=== PATIENT | male | born 2000 | race Caucasian/White ===

== ENCOUNTER 2021-05-12 10:08 | Observation (INO) ==
[2021-05-12] MEDS ORDERED: SODIUM CHLORIDE 0.9% 1000ML 1,000 ML IV STA (10:54)
--- NOTE | 2021-05-12 11:18 | Emergency Department Note ---
Impression & Plan Acute appendicitis ED Provider Note Provider: Leon Alvarenga MD DATE OF SERVICE: 05/12/2021 CHIEF COMPLAINT: Abdominal pain HISTORY OF PRESENT ILLNESS: Patient is a 21-year-old otherwise healthy gentleman presenting here today complaining of initially some more epigastric abdominal pain starting yesterday afternoon radiating overnight and this morning to the right lower quadrant. Denies significant back pain or radiation of the pain down legs. Denies testicular or genital pain. Denies any trauma. Patient denies nausea or vomiting but states it was a little constipated yesterday and had one episode of diarrhea today. Denies any history of similar pain. States he has not had much of an appetite. Tried some Pepcid overnight that helped but did not help this morning. Did have anything to eat today. States the pain is manageable hurts more when he walks. REVIEW OF SYSTEMS: A total of 10 review of systems was obtained and negative except as stated above in the HPI. PAST MEDICAL HISTORY: As noted above MEDICATIONS: Denies SOCIAL HISTORY: Non-smoker, [employer] student PHYSICAL EXAM: GENERAL: alert and oriented in no acute distress on stretcher Head: normocephalic and atraumatic EYES: No injection, discharge or icterus. NECK: Trachea midline. ENT: Mucous membranes pink and moist. LUNGS: Airway patent. No retractions no tachypnea HEART: Regular rate and rhythm. No chest wall tenderness ABDOMEN: Soft with tenderness in the right lower quadrant. Positive psoas sign. Negative Bowens sign. EXTREMITIES: Without swelling, tenderness or deformity NEUROLOGICAL: No focal deficits. No aphasia. No facial droop or slurred speech. Patient's laboratory studies and imaging reviewed. Differential includes Appendicitis, testicular torsion, infections, diverticul itis, UTI, obstruction, mesenteric ischemia, aortic pathology, inflammatory bowel disease, renal colic, PUD, pancreatitis, biliary pathology, hernia, volvulus, constipation, as well as other pathologies. IMPRESSION/MEDICAL DECISION MAKING: Patient presentation concerning for appendicitis. Lower suspicion for gastrointestinal process such as colitis. Patient is not peritoneal. Negative Bowens sign and no believe this represents biliary pathology. Blood work is reassuring as is Covid test. Denies any pain. Urinalysis negative. No significant leukocytosis. CT completed shows evidence of acute appendicitis without perforation or abscess. Surgical team is consulted. Patient and with patient's request his mother was updated via phone regarding the findings. Surgery team to evaluate for surgical care. Patient declined pain medication while here. DIAGNOSIS: Acute appendicitis, abdominal pain DISPOSITION: Evaluated by the surgery team for surgical treatment Past Med/Surg History Medical History (Updated 05/12/21 @ 18:49 by Leon Alvarenga M.D.) No significant past medical history Surgical History (Updated 05/12/21 @ 14:52 by Sebas Brooks MD) No significant past surgical history Social History Smoking Status: Never smoker Feels Safe at Home: Yes Allergies Allergies Allergy/AdvReac Type Severity Reaction Status Date / Time Penicillins AdvReac Rash Unverified 05/12/21 14:18 Results & Data (ED) Vital Signs Vital Signs - 24 hr 05/12/21 10:11 05/12/21 11:23 05/12/21 11:30 Temperature 36.8 C Temperature Source Oral Pulse Rate 107 H 84 92 H Pulse Rate [Apical] Pulse Rate [Left] Pulse Rate from SpO2 Sensor 85 96 H Pulse Rhythm [Apical] Pulse Rhythm [Left] Pulse Strength [Left] Respiratory Rate 18 20 21 Respiratory Effort / Characteristics Respiratory Depth Respiratory Pattern Blood Pressure 145/87 H 103/75 Blood Pressure [Left Arm] Blood Pressure Mean 106 84 Blood Pressure Mean [Left Arm] Blood Pressure Position [Left Arm] Pulse Oximetry 96 96 96 Oxygen Delivery Method Room Air Room Air Oxygen Flow Rate Sepsis Recent Fever Within 48 Hours No Sepsis New/Unexplained Change in Mental Status No Sepsis Action Taken by Nursing No Action Required 05/12/21 12:00 05/12/21 12:36 05/12/21 13:00 Temperature Temperature Source Pulse Rate 81 80 82 Pulse Rate [Apical] Pulse Rate [Left] Pulse Rate from SpO2 Sensor 79 77 83 Pulse Rhythm [Apical] Pulse Rhythm [Left] Pulse Strength [Left] Respiratory Rate 18 18 17 Respiratory Effort / Characteristics Respiratory Depth Respiratory Pattern Blood Pressure 123/76 132/78 120/85 Blood Pressure [Left Arm] Blood Pressure Mean 91 96 96 Blood Pressure Mean [Left Arm] Blood Pressure Position [Left Arm] Pulse Oximetry 96 98 99 Oxygen Delivery Method Room Air Room Air Room Air Oxygen Flow Rate Sepsis Recent Fever Within 48 Hours Sepsis New/Unexplained Change in Mental Status Sepsis Action Taken by Nursing 05/12/21 14:46 05/12/21 15:01 05/12/21 16:29 Temperature 36.9 C 36.6 C Temperature Source Oral Temporal Artery Scan Pulse Rate Pulse Rate [Apical] 77 Pulse Rate [Left] 84 89 Pulse Rate from SpO2 Sensor Pulse Rhythm [Apical] Regular Pulse Rhythm [Left] Regular Pulse Strength [Left] Normal Respiratory Rate 16 20 16 Respiratory Effort / Characteristics Non-Labored Non-Labored Non-Labored Spontaneous Respiratory Depth Normal Normal Normal Respiratory Pattern Regular Regular Blood Pressure Blood Pressure [Left Arm] 133/79 118/80 116/53 L Blood Pressure Mean Blood Pressure Mean [Left Arm] 97 92 74 Blood Pressure Position [Left Arm] Lying Semi-fowlers Pulse Oximetry 97 99 97 Oxygen Delivery Method Room Air Room Air Nasal Cannula Oxygen Flow Rate 2 Sepsis Recent Fever Within 48 Hours Sepsis New/Unexplained Change in Mental Status Sepsis Action Taken by Nursing 05/12/21 16:35 05/12/21 16:45 05/12/21 16:55 Temperature Temperature Source Pulse Rate Pulse Rate [Apical] 86 82 72 Pulse Rate [Left] Pulse Rate from SpO2 Sensor Pulse Rhythm [Apical] Regular Regular Regular Pulse Rhythm [Left] Pulse Strength [Left] Respiratory Rate 15 12 12 Respiratory Effort / Characteristics Non-Labored Spontaneous Non-Labored Spontaneous Non-Labored Spontaneous Respiratory Depth Normal Normal Normal Respiratory Pattern Regular Regular Regular Blood Pressure Blood Pressure [Left Arm] 113/69 115/66 124/77 Blood Pressure Mean Blood Pressure Mean [Left Arm] 83 82 92 Blood Pressure Position [Left Arm] Semi-fowlers Semi-fowlers Semi-fowlers Pulse Oximetry 99 99 100 Oxygen Delivery Method Nasal Cannula Nasal Cannula Nasal Cannula Oxygen Flow Rate 2 2 2 Sepsis Recent Fever Within 48 Hours Sepsis New/Unexplained Change in Mental Status Sepsis Action Taken by Nursing 05/12/21 17:05 05/12/21 17:15 05/12/21 17:25 Temperature 37.0 C Temperature Source Temporal Artery Scan Pulse Rate Pulse Rate [Apical] 63 80 90 Pulse Rate [Left] Pulse Rate from SpO2 Sensor Pulse Rhythm [Apical] Regular Regular Regular Pulse Rhythm [Left] Pulse Strength [Left] Respiratory Rate 16 16 12 Respiratory Effort / Characteristics Non-Labored Spontaneous Non-Labored Spontaneous Non-Labored Spontaneous Respiratory Depth Normal Normal Normal Respiratory Pattern Regular Regular Regular Blood Pressure Blood Pressure [Left Arm] 121/70 129/74 115/59 L Blood Pressure Mean Blood Pressure Mean [Left Arm] 87 92 77 Blood Pressure Position [Left Arm] Semi-fowlers Semi-fowlers Semi-fowlers Pulse Oximetry 92 98 98 Oxygen Delivery Method Room Air Nasal Cannula Nasal Cannula Oxygen Flow Rate 2 2 Sepsis Recent Fever Within 48 Hours Sepsis New/Unexplained Change in Mental Status Sepsis Action Taken by Nursing 05/12/21 17:35 05/12/21 17:45 Temperature 36.8 C Temperature Source Temporal Artery Scan Pulse Rate Pulse Rate [Apical] 98 H 95 H Pulse Rate [Left] Pulse Rate from SpO2 Sensor Pulse Rhythm [Apical] Regular Regular Pulse Rhythm [Left] Pulse Strength [Left] Respiratory Rate 15 12 Respiratory Effort / Characteristics Non-Labored Spontaneous Non-Labored Spontaneous Respiratory Depth Normal Normal Respiratory Pattern Regular Regular Blood Pressure Blood Pressure [Left Arm] 128/73 124/60 Blood Pressure Mean Blood Pressure Mean [Left Arm] 91 81 Blood Pressure Position [Left Arm] Semi-fowlers Semi-fowlers Pulse Oximetry 98 97 Oxygen Delivery Method Nasal Cannula Nasal Cannula Oxygen Flow Rate 2 2 Sepsis Recent Fever Within 48 Hours Sepsis New/Unexplained Change in Mental Status Sepsis Action Taken by Nursing Laboratory Data Result diagrams: 05/12/21 11:15 05/12/21 11:15 Lab Results 05/12/21 05/12/21 05/12/21 Range/Units 11:15 11:15 11:56 WBC 10.53 (4.8-10.8) K/uL RBC 5.31 (4.7-6.1) M/uL Hgb 15.5 (14.0-18.0) g/dL Hct 45.1 (42-52) % MCV 84.9 (80-100) fL MCH 29.2 (25-34) pg MCHC 34.4 (32-36) g/dL RDW Std Deviation 40.1 (36.4-46.3) fL RDW Coeff of Tracey 13.0 (11.5-14.5) % Plt Count 252 (130-400) K/uL MPV 11.2 H (7.4-10.4) fL Immature Gran % (Auto) 0.2 % Neut % (Auto) 76.7 % Lymph % (Auto) 11.7 % Pope % (Auto) 10.3 % Eos % (Auto) 0.7 % Baso % (Auto) 0.4 % Neut # (Auto) 8.09 H (1.4-6.5) K/uL Lymph # (Auto) 1.23 (1.2-3.4) K/uL Pope # (Auto) 1.08 H (0.11-0.59) K/uL Eos # (Auto) 0.07 (0-0.5) K/uL Baso # (Auto) 0.04 (0-0.2) K/uL Immature Gran # (Auto) 0.02 (0.00-0.02) K/uL Sodium 136 (136-145) mmol/L Potassium 4.0 (3.5-5.1) mmol/L Chloride 103 (98-107) mmol/L Carbon Dioxide 27 (21-32) mmol/L Anion Gap 6.0 (3-11) BUN 14 (7-18) mg/dl Creatinine 1.02 (0.6-1.4) mg/dl Est Cr Clr Drug Dosing 118.3 ml/min Est GFR ( Amer) 121.2 ml/min Est GFR (Non-Af Amer) 104.6 ml/min BUN/Creatinine Ratio 13.4 (10-20) Glucose 88 (70-99) mg/dl Calcium 9.8 (8.5-10.1) mg/dl Total Bilirubin 1.1 H (0.2-1) mg/dl AST 16 (15-37) U/L ALT 23 (12-78) U/L Alkaline Phosphatase 75 (45-117) U/L Total Protein 8.8 H (6.4-8.2) gm/dl Albumin 4.3 (3.4-5.0) gm/dl Globulin 4.5 H (2.5-4.0) gm/dl Albumin/Globulin Ratio 1.0 (0.9-2) Lipase 68 L (73-393) U/L Urine Color Urine Appearance (Clear) Urine pH (4.5-7.5) Ur Specific Gerton (1.000-1.030) Urine Protein (Negative) Urine Glucose (UA) (Negative) Urine Ketones (Negative) Urine Blood (Negative) Urine Nitrite (Negative) Urine Bilirubin (Negative) Urine Urobilinogen (Negative) Ur Leukocyte Esterase (Negative) COVID-19 Eval Order Covid19 at [facility] SARS-CoV-2 (PCR) (Negative) 05/12/21 05/12/21 Range/Units 11:56 12:36 WBC (4.8-10.8) K/uL RBC (4.7-6.1) M/uL Hgb (14.0-18.0) g/dL Hct (42-52) % MCV (80-100) fL MCH (25-34) pg MCHC (32-36) g/dL RDW Std Deviation (36.4-46.3) fL RDW Coeff of Tracey (11.5-14.5) % Plt Count (130-400) K/uL MPV (7.4-10.4) fL Immature Gran % (Auto) % Neut % (Auto) % Lymph % (Auto) % Pope % (Auto) % Eos % (Auto) % Baso % (Auto) % Neut # (Auto) (1.4-6.5) K/uL Lymph # (Auto) (1.2-3.4) K/uL Pope # (Auto) (0.11-0.59) K/uL Eos # (Auto) (0-0.5) K/uL Baso # (Auto) (0-0.2) K/uL Immature Gran # (Auto) (0.00-0.02) K/uL Sodium (136-145) mmol/L Potassium (3.5-5.1) mmol/L Chloride (98-107) mmol/L Carbon Dioxide (21-32) mmol/L Anion Gap (3-11) BUN (7-18) mg/dl Creatinine (0.6-1.4) mg/dl Est Cr Clr Drug Dosing ml/min Est GFR ( Amer) ml/min Est GFR (Non-Af Amer) ml/min BUN/Creatinine Ratio (10-20) Glucose (70-99) mg/dl Calcium (8.5-10.1) mg/dl Total Bilirubin (0.2-1) mg/dl AST (15-37) U/L ALT (12-78) U/L Alkaline Phosphatase (45-117) U/L Total Protein (6.4-8.2) gm/dl Albumin (3.4-5.0) gm/dl Globulin (2.5-4.0) gm/dl Albumin/Globulin Ratio (0.9-2) Lipase (73-393) U/L Urine Color Yellow Urine Appearance Clear (Clear) Urine pH 7.0 (4.5-7.5) Ur Specific Gerton 1.009 (1.000-1.030) Urine Protein Negative (Negative) Urine Glucose (UA) Negative (Negative) Urine Ketones 1+ H (Negative) Urine Blood Negative (Negative) Urine Nitrite Negative (Negative) Urine Bilirubin Negative (Negative) Urine Urobilinogen Negative (Negative) Ur Leukocyte Esterase Negative (Negative) COVID-19 Eval Order SARS-CoV-2 (PCR) NEGATIVE (Negative) Administered Medications Discontinued Medications Bupivacaine HCl (Bupivacaine 0.5 % 5 Mg/1 Ml Mpf 30ml Vial) Confirm Administered Dose 30 ml .ROUTE .STK-MED ONE Stop: 05/12/21 15:10 Last Admin: 05/12/21 16:10 Dose: 10 ml Documented by: [id number] Clindamycin Phosphate (Clindamycin 600 Mg/54 Ml D5w) Confirm Administered Dose 600 mg IV .STK-MED ONE Stop: 05/12/21 15:02 Last Admin: 05/12/21 15:27 Dose: 600 mg Documented by: [id number] Fentanyl Citrate (Fentanyl Citrate 100 Mcg/2 Ml Vial) 25 mcg IV Q5M PRN PRN Reason: PACU Use Only-Pain Stop: 05/12/21 23:18 Last Admin: 05/12/21 17:31 Dose: 25 mcg Documented by: [id number] Admin: 05/12/21 17:25 Dose: 25 mcg Documented by: [id number] Admin: 05/12/21 17:15 Dose: 25 mcg Documented by: [id number] Admin: 05/12/21 16:50 Dose: 25 mcg Documented by: [id number] Sodium Chloride (Nss 1000ml) 1,000 mls @ 999 mls/hr IV .Q1H1M STA Stop: 05/12/21 11:54 Last Infusion: 05/12/21 12:18 Dose: 0 mls/hr Documented by: [id number] Admin: 05/12/21 11:17 Dose: 999 mls/hr Documented by: [id number] Acetaminophen (Ofirmev) 1,000 mg in 100 mls @ 400 mls/hr IV NOW ONE; Protocol Stop: 05/12/21 16:29 Last Infusion: 05/12/21 18:41 Dose: 0 mls/hr Documented by: [id number] Admin: 05/12/21 16:38 Dose: 400 mls/hr Documented by: [id number] Ioversol (Optiray 320 100ml) 98 ml IV ONCE ONE Stop: 05/12/21 13:47 Last Admin: 05/12/21 13:47 Dose: 98 ml Documented by: [id number] Ketorolac Tromethamine (Ketorolac 30 Mg/Ml Vial) 30 mg IV ONCE PRN PRN Reason: PACU Use Only-Pain Stop: 05/12/21 23:19 Last Admin: 05/12/21 16:52 Dose: 30 mg Documented by: [id number] Ondansetron HCl (Ondansetron Inj 2 Mg/Ml 2 Ml Vial) 4 mg IV ONCE PRN PRN Reason: PACU Use Only-Nausea/Vomiting Stop: 05/12/21 23:19 Last Admin: 05/12/21 16:50 Dose: 4 mg Documented by: [id number] Imaging Data Radiologist's Impression: Abdomen/Pelvis CT 05/12/21 10:54 CT abd pelvis oral and IV con CLINICAL HISTORY: abd pain right sided since yesterday. Patient reports diarrhea COMPARISON STUDY: No previous studies for comparison. CT DOSE: 529.55 mGycm TECHNIQUE: Standard CT of the Abdomen and Pelvis was performed with IV contrast. A dose lowering technique was utilized adhering to the principles of ALARA. Contrast Volume: Optiray 320, 98 ml. The patient received oral contrast. FINDINGS: Lung base: The lung bases are clear. Abdominal cavity: There is no evidence for abdominal mass, adenopathy or ascites. Liver: There is homogeneous attenuation of the liver parenchyma. There is no evidence for enhancing mass lesion. Spleen: There is homogeneous attenuation of the splenic parenchyma. There is no enhancing mass lesion. Pancreas: There is homogeneous attenuation of the pancreatic parenchyma. There is no evidence for mass lesion or peripancreatic fluid collection. Gall Bladder: The gallbladder is well distended with no evidence for intraluminal calculi, wall thickening or pericholecystic edema. Adrenal glands: The adrenal glands are normal in size and attenuation. There is no evidence for enhancing mass lesion. Kidneys: There is homogeneous attenuation of the renal parenchyma bilaterally. There is no evidence for renal calculus or hydronephrosis. There is no evidence for enhancing mass. Bowel: There is swelling of the appendix measuring 10 mm with diffuse enhancement of the appendiceal wall. A small, 3 mm calcified appendicolith is present. Periappendiceal inflammatory changes seen. However, there is no evidence for perforation or abscess. The bowel loops are otherwise normally placed within the abdomen and pelvis. There is no evidence for mass lesion. Oral contrast is seen within the stomach, small bowel and colon to the level of the splenic flexure. There is no evidence for free air. Bladder: The bladder is within normal limits with no evidence for focal mass, calculus or diverticulum. There is mild diffuse thickening of the bladder wall. : There is no evidence for pelvic mass or adenopathy. There is no evidence for pelvic ascites. Vasculature: There is no evidence for aneurysmal dilatation of the abdominal aorta. Osseous structures: There is no acute osseous pathology. IMPRESSION: 1. CT findings demonstrating acute appendicitis without evidence for perforation or abscess. Critical results will be called to the emergency department. ACT 112: Negative or not required by law. Electronically signed by: Phil Gale M.D. 05/12/2021 2:05 PM Discharge Plan Visit Data Chief Complaint: Abdominal Pain Stated Complaint: ABD PAIN- REF BY [facility] ED Provider: Leon Alvarenga Discharge Problem: Acute appendicitis Patient Disposition: Admitted As Inpatient Discharge Instructions Interventions: ED Discharge Assessment Last Done: 05/12/21 14:54
[2021-05-12 11:27] LABS: Basophils # (auto) 0.04 K/uL (0-0.2); Basophils % (auto) 0.4 %; Eosinophils # (auto) 0.07 K/uL (0-0.5); Eosinophils % (auto) 0.7 %; Hematocrit (blood only) 45.1 % (42-52); Hemoglobin 15.5 g/dL (14.0-18.0); Immature Granulocytes # (auto) 0.02 K/uL (0.00-0.02); Immature Granulocytes % (auto) 0.2 %; Lymphocytes # (auto) 1.23 K/uL (1.2-3.4); Lymphocytes % (auto) 11.7 %; Mean Corpuscular Hemoglobin 29.2 pg (25-34); Mean Corpuscular Hgb Conc 34.4 g/dL (32-36); Mean Corpuscular Volume 84.9 fL (80-100); Mean Platelet Volume 11.2 fL (7.4-10.4); Monocytes # (auto) 1.08 K/uL (0.11-0.59); Monocytes % (auto) 10.3 %; Neutrophils # (auto) 8.09 K/uL (1.4-6.5); Neutrophils % (auto) 76.7 %; Platelet Count 252 K/uL (130-400); RDW Standard Deviation 40.1 fL (36.4-46.3); Red Blood Count 5.31 M/uL (4.7-6.1); White Blood Count 10.53 K/uL (4.8-10.8)
[2021-05-12 11:47] LABS: Albumin Level 4.3 gm/dl (3.4-5.0); BUN Creatinine Ratio 13.4 (10-20); Calcium 9.8 mg/dl (8.5-10.1); Creatinine Clr Calc Pharmacy 118.3 ml/min; Est GFR (African American) 121.2 ml/min; Est GFR (Non-African American) 104.6 ml/min
[2021-05-12 11:50] LABS: Bilirubin,Total 1.1 mg/dl (0.2-1); Globulin 4.5 gm/dl (2.5-4.0); Total Protein 8.8 gm/dl (6.4-8.2)
[2021-05-12 12:49] LABS: Appearance Urine Clear (Clear); Bilirubin Urine Negative (Negative); Blood Urine Negative (Negative); Color Urine Yellow; Glucose Urine UA Negative (Negative); Ketones Urine 1+ (Negative); Leukocyte Esterase Urine Negative (Negative); Nitrite Urine Negative (Negative); Protein Urine Negative (Negative); Specific Gravity Urine 1.009 (1.000-1.030); Urobilinogen Urine Negative (Negative)
[2021-05-12] MEDS ORDERED: OPTIRAY 320 100ml IV ONE (13:46)
--- NOTE | 2021-05-12 14:06 | CT Scan Report ---
CT abd pelvis oral and IV con CLINICAL HISTORY: abd pain right sided since yesterday. Patient reports diarrhea COMPARISON STUDY: No previous studies for comparison. CT DOSE: 529.55 mGycm TECHNIQUE: Standard CT of the Abdomen and Pelvis was performed with IV contrast. A dose lowering nivia hnique was utilized adhering to the principles of ALARA. Contrast Volume: Optiray 320, 98 ml. The patient received oral contrast. FINDINGS: Lung base: The lung bases are clear. Abdominal cavity: There is no evidence for abdominal mass, adenopathy or ascites. Liver: There is homogeneous attenuation of the liver parenchyma. There is no evidence for enhancing m ass lesion. Spleen: There is homogeneous attenuation of the splenic parenchyma. There is no enhancing mass lesion . Pancreas: There is homogeneous attenuation of the pancreatic parenchyma. There is no evidence for mas s lesion or peripancreatic fluid collection. Gall Bladder: The gallbladder is well distended with no evidence for intraluminal calculi, wall thick ening or pericholecystic edema. Adrenal glands: The adrenal glands are normal in size and attenuation. There is no evidence for enhan cing mass lesion. Kidneys: There is homogeneous attenuation of the renal parenchyma bilaterally. There is no evidence f or renal calculus or hydronephrosis. There is no evidence for enhancing mass. Bowel: There is swelling of the appendix measuring 10 mm with diffuse enhancement of the appendiceal wall. A small, 3 mm calcified appendicolith is present. Periappendiceal inflammatory changes seen. Ho wever, there is no evidence for perforation or abscess. The bowel loops are otherwise normally placed within the abdomen and pelvis. There is no evidence fo r mass lesion. Oral contrast is seen within the stomach, small bowel and colon to the level of the sp lenic flexure. There is no evidence for free air. Bladder: The bladder is within normal limits with no evidence for focal mass, calculus or diverticulu m. There is mild diffuse thickening of the bladder wall. : There is no evidence for pelvic mass or adenopathy. There is no evidence for pelvic ascites. Vasculature: There is no evidence for aneurysmal dilatation of the abdominal aorta. Osseous structures: There is no acute osseous pathology. IMPRESSION: 1. CT findings demonstrating acute appendicitis without evidence for perforation or abscess. Critical results will be called to the emergency department. ACT 112: Negative or not required by law. Electronically signed by: Phil Gale M.D. 05/12/2021 2:05 PM
--- NOTE | 2021-05-12 14:21 | History & Physical Report ---
Date of Service May 12, 2021 Assessment & Plan (1) Acute appendicitis: Plan: This is a 21y M with no significant PMH who presents to the [facility] ED on 05/12/21 with complaints of abdominal pain starting yesterday around 3:30pm. The pain migrated from the mid-abdomen to the RLQ, associated with nausea. CT scan performed in the ER revealed evidence concerning for acute appendicitis, no perforation or abscess. WBC 10.5. Vital signs stable. On examination patient is tender to palpation in the RLQ. Based on history and clinical findings we will proceed to take the patient to the OR for a laparoscopic appendectomy. Covid testing is negative. He will receive pre-op IV clindamycin. Dr. Steele has obtained surgical consent. History of Present Illness Primary Care Provider: [facility], [place] This is a 21y M with no significant PMH who presents to the [facility] ED on 05/12/21 with complaints of abdominal pain starting yesterday around 3:30pm. He says the pain originally started in his mid abdomen. He tried to sleep it off without success. He called [facility] around 9pm who referred him to the ER for further evaluation, but he did not come in at that time. This morning when he woke up the pain migrated to the RLQ. Pain was associated with nausea, chills, and diarrhea and he decided to come in. A CT scan performed in the ER revealed evidence concerning for acute appendicitis, no perforation or abscess.Patient says he last ate yesterday around noon. He has no past surgical history. Has an allergy to PCN. Allergies Allergy/AdvReac Type Severity Reaction Status Date / Time Penicillins AdvReac Rash Unverified 05/12/21 14:18 Past Med/Surg History Medical History (Updated 05/12/21 @ 14:52 by Sebas Brooks MD) No significant past medical history Surgical History (Updated 05/12/21 @ 14:52 by Sebas Brooks MD) No significant past surgical history Social History Smoking Status: Never smoker Feels Safe at Home: Yes Review of Systems Constitutional: + chills; no fever Respiratory: no dyspnea Cardiovascular: no chest pain Gastrointestinal: + abdominal pain, + bloating, + nausea and + diarrhea/loose stools; no vomiting Physical Exam Physical Exam: awake/alert Constitutional: well developed and well nourished Respiratory: normal respiratory effort Gastrointestinal (Abdomen): Inspection/Auscultation: + abdomen distended (mild) Percussion/Palpation: + abdomen tender (TTP RLQ) Results & Data Results & Data ([facility]) Vital Signs (Past 12 Hours) Vital Signs Temp Pulse Resp BP Pulse Ox 05/12/21 13:00 82 17 120/85 99 05/12/21 12:36 80 18 132/78 98 05/12/21 12:00 81 18 123/76 96 05/12/21 11:30 92 H 21 103/75 96 05/12/21 11:23 84 20 96 05/12/21 10:11 36.8 C 107 H 18 145/[address] abd pelvis oral and IV con CLINICAL HISTORY: abd pain right sided since yesterday. Patient reports diarrhea COMPARISON STUDY: No previous studies for comparison. CT DOSE: 529.55 mGycm TECHNIQUE: Standard CT of the Abdomen and Pelvis was performed with IV contrast. A dose lowering technique was utilized adhering to the principles of ALARA. Contrast Volume: Optiray 320, 98 ml. The patient received oral contrast. FINDINGS: Lung base: The lung bases are clear. Abdominal cavity: There is no evidence for abdominal mass, adenopathy or ascites. Liver: There is homogeneous attenuation of the liver parenchyma. There is no evidence for enhancing mass lesion. Spleen: There is homogeneous attenuation of the splenic parenchyma. There is no enhancing mass lesion. Pancreas: There is homogeneous attenuation of the pancreatic parenchyma. There is no evidence for mass lesion or peripancreatic fluid collection. Gall Bladder: The gallbladder is well distended with no evidence for intraluminal calculi, wall thickening or pericholecystic edema. Adrenal glands: The adrenal glands are normal in size and attenuation. There is no evidence for enhancing mass lesion. Kidneys: There is homogeneous attenuation of the renal parenchyma bilaterally. There is no evidence for renal calculus or hydronephrosis. There is no evidence for enhancing mass. Bowel: There is swelling of the appendix measuring 10 mm with diffuse enhancement of the appendiceal wall. A small, 3 mm calcified appendicolith is present. Periappendiceal inflammatory changes seen. However, there is no evidence for perforation or abscess. The bowel loops are otherwise normally placed within the abdomen and pelvis. There is no evidence for mass lesion. Oral contrast is seen within the stomach, small bowel and colon to the level of the splenic flexure. There is no evidence for free air. Bladder: The bladder is within normal limits with no evidence for focal mass, calculus or diverticulum. There is mild diffuse thickening of the bladder wall. : There is no evidence for pelvic mass or adenopathy. There is no evidence for pelvic ascites. Vasculature: There is no evidence for aneurysmal dilatation of the abdominal aorta. Osseous structures: There is no acute osseous pathology. IMPRESSION: 1. CT findings demonstrating acute appendicitis without evidence for perforation or abscess. Critical results will be called to the emergency department. ACT 112: Negative or not required by law. Electronically signed by: Phil Gale M.D. 05/12/2021 2:05 PM Supervising Physician Co-Signing Physician Notes Agree with above assessment-I did evaluate the patient in the emergency room PG Care Time/CCT Total # of Minutes Spent Total Time Spent with Patient: Total time spent is greater than 50% in coordination of care (as documented) at patient's floor/unit and/or counseling patient: Coding Level of Care Code 64963 Initial Inpt Care Lvl 2 Diagnoses Acute appendicitis K35.80
--- NOTE | 2021-05-12 14:52 | Anesthesiology Consultation ---
Date of Service May 12, 2021 Assessment & Plan (1) Encounter for pre-operative examination: Chart Review Chart Review: Acceptable Risk for Surgery History Surgery Operation Date: 05/12/21 16:50 Proposed Procedures p Laparoscopic Appendectomy - Devon Steele MD, FACS Height/Weight Height: 5 ft 10 in Weight: 77.2 kg Allergies Allergy/AdvReac Type Severity Reaction Status Date / Time Penicillins AdvReac Rash Unverified 05/12/21 14:18 NPO Date Last Intake of Fluids: 05/12/21 Time Last Intake of Fluids: 08:00 Last Intake of Fluids Comment: Had CT Scan prep Date Last Intake of Solids: 05/11/21 Time Last Intake of Solids: 12:00 Past Medical History Medical History (Updated 05/12/21 @ 14:52 by Sebas Brooks MD) No significant past medical history Past Surgical History Surgical History (Updated 05/12/21 @ 14:52 by Sebas Brooks MD) No significant past surgical history Social History Smoking Status: Never smoker Physical Exam Vital Signs Last Vital Signs Temp 36.8 C 05/12/21 10:11 Pulse 84 05/12/21 14:46 Resp 16 05/12/21 14:46 BP 133/79 05/12/21 14:46 Pulse Ox 97 05/12/21 14:46 Testing Laboratory Results 05/12/21 11:15 05/12/21 11:15 Urine Color Yellow 05/12/21 12:36 Urine Appearance Clear (Clear) 05/12/21 12:36 Urine pH 7.0 (4.5-7.5) 05/12/21 12:36 Ur Specific [place] 1.009 (1.000-1.030) 05/12/21 12:36 Urine Protein Negative (Negative) 05/12/21 12:36 Urine Glucose (UA) Negative (Negative) 05/12/21 12:36 Urine Ketones 1+ (Negative) H 05/12/21 12:36 Urine Nitrite Negative (Negative) 05/12/21 12:36 Ur Leukocyte Esterase Negative (Negative) 05/12/21 12:36
[2021-05-12] MEDS ORDERED: CLINDAMYCIN 600 MG/54 ML D5W IV ONE (15:01)
[2021-05-12] MEDS ORDERED: fentaNYL citrate 100 MCG/2 ML VIAL ONE ×2 (15:04→15:43)
[2021-05-12] MEDS ORDERED: MIDAZOLAM HCL 1 MG/ML 2ML VIAL ONE (15:04)
[2021-05-12] MEDS ORDERED: GLYCOPYRROLATE 0.2 MG/ML VIAL ONE (15:05)
[2021-05-12] MEDS ORDERED: ONDANSETRON INJ 2 MG/ML 2 ML VIAL ONE (15:05)
[2021-05-12] MEDS ORDERED: DEXAMETHASONE SOD INJ 4 MG/ML VIAL ONE (15:05)
[2021-05-12] MEDS ORDERED: NEOSTIGMINE METHYLSULFATE 1 MG/ML 10ML VIAL ONE (15:05)
[2021-05-12] MEDS ORDERED: ROCURONIUM BROMIDE 10 MG/ML 5 ML VIAL IV ONE (15:05)
[2021-05-12] MEDS ORDERED: PROPOFOL IV EMULSION 10 MG/ML 20 ML VIAL IV ONE (15:05)
[2021-05-12] MEDS ORDERED: LIDOCAINE 2% 2 ML VIAL/AMP(20MG/ML) INFIL ONE (15:05)
[2021-05-12] MEDS ORDERED: BUPIVACAINE 0.5 % 5 MG/1 ML MPF 30ML VIAL ONE (15:09)
[2021-05-12] MEDS ORDERED: ATROPINE SULFATE 0.1 MG/ML 10ML SYR IV PRN (15:18)
[2021-05-12] MEDS ORDERED: KETOROLAC 30 MG/ML VIAL IV PRN (15:18)
[2021-05-12] MEDS ORDERED: ONDANSETRON INJ 2 MG/ML 2 ML VIAL IV PRN ×2 (15:18→18:13)
[2021-05-12] MEDS ORDERED: PROMETHAZINE HCL 6.25 MG in SODIUM CHLORIDE 0.9% 50 ML IV PRN (15:18)
--- NOTE | 2021-05-12 16:14 | Post Operative Brief Note ---
PG Immediate Post Op with CF Date of Surgery May 12, 2021 Pre & Post Diagnosis Operation Date: 05/12/21 16:50 Pre-Op Diagnosis: acute appendicitis Post-Op Diagnosis: acute appendicitis I identified the patient and participated in the time-out.: Yes Procedure Operation Date: 05/12/21 16:50 Actual Procedures p Laparoscopic Appendectomy(Not Applicable) - Devon Steele MD, FACS Surgeon Devon Steele MD, FACS Relief Salesperson Filemon Mckeon Estimated Blood Loss 10 Findings Consistent with Post-Op Diagnosis Acutely inflamed appendix Specimens Specimen Description: a. appendix
[2021-05-12] MEDS ORDERED: ACETAMINOPHEN 1,000 MG/100 ML VIAL IV ONE (16:15)
[2021-05-12] MEDS: fentaNYL citrate 100 MCG/2 ML VIAL IV PRN ×4 (16:50→17:31)
--- NOTE | 2021-05-12 17:10 | Anesthesiology Progress Note ---
Date of Service May 12, 2021 Anesthesia Post Procedure Vital Signs Vital Signs: Temp Pulse Pulse Pulse Resp BP BP 05/12/21 17:05 37.0 C 63 16 121/70 05/12/21 16:55 72 12 124/77 05/12/21 16:45 82 12 115/66 05/12/21 16:35 86 15 113/69 05/12/21 16:29 36.6 C 77 16 116/53 L 05/12/21 15:01 36.9 C 89 20 118/80 05/12/21 14:46 84 16 133/79 05/12/21 13:00 82 17 120/85 05/12/21 12:36 80 18 132/78 05/12/21 12:00 81 18 123/76 05/12/21 11:30 92 H 21 103/75 05/12/21 11:23 84 20 05/12/21 10:11 36.8 C 107 H 18 145/87 H Pulse Ox 05/12/21 17:05 92 05/12/21 16:55 100 05/12/21 16:45 99 05/12/21 16:35 99 05/12/21 16:29 97 05/12/21 15:01 99 05/12/21 14:46 97 05/12/21 13:00 99 05/12/21 12:36 98 05/12/21 12:00 96 05/12/21 11:30 96 05/12/21 11:23 96 05/12/21 10:11 96 Pain Intensity Right Lower Abdomen: Pain Intensity: 3 Transfer of Care Handoff Completed per policy Notes Mental Status: alert / awake / arousable Patient Amnestic to Procedure: Yes Nausea / Vomiting: adequately controlled Pain: adequately controlled Airway Patency, RR, SpO2: stable & adequate BP & HR: stable & adequate Hydration State: stable & adequate Anesthetic Complications: no major complications apparent and Pt Satisfied with anesthetic care
[2021-05-12] MEDS ORDERED: HYDROmorphone INJ 0.5 MG/0.5 ML SYR IV PRN ×2 (18:13)
[2021-05-12] MEDS ORDERED: PROMETHAZINE HCL 25 MG in SODIUM CHLORIDE 0.9% 50 ML IV PRN (18:13)
[2021-05-12] MEDS ORDERED: LACTATED RINGER'S 1,000 ML IV SCH (18:13)
[2021-05-12] MEDS ORDERED: PROMETHAZINE HCL 12.5 MG in SODIUM CHLORIDE 0.9% 50 ML IV PRN (18:13)
--- NOTE | 2021-05-12 20:05 | Operative Report (OR) ---
DATE OF OPERATION: 05/12/2021. NAME OF OPERATION: Laparoscopic appendectomy with lysis of adhesions. PREOPERATIVE DIAGNOSIS: Acute appendicitis. POSTOPERATIVE DIAGNOSIS: Acute appendicitis. STAFF SURGEON: Devon Steele MD. EAR FLAP BINDER: Mónica Mckeon PA-C. ANESTHESIA: General. DESCRIPTION OF PROCEDURE: The patient was brought in the operating room and placed on the operating table in supine position. His abdomen was prepped and draped in the usual fashion. An incision was made just above the umbilicus using 0.5% plain Marcaine to anesthetize skin and subcutaneous tissue. Incision made carrying dissection down, placing a Veress needle producing pneumoperitoneum, placing a 5 mm port. Camera was passed and then a 5 mm port placed suprapubically and a 12 mm port placed in left lower quadrant. The cecum was reflected. The appendix was very long. It had adhesions in the retroperitoneum. The base of the appendix was transected using an Endo-MIGUEL stapler and then the shira endix was carefully dissected away from the retroperitoneum using two more Endo-MIGUEL loads. The appen duncan was placed in an Endobag and removed through the left lower quadrant port site. The site was irr igated and aspirated. Hemostasis was maintained. All ports were removed. The fascia at the 12 mm s ite closed using 0 Vicryl suture. The skin was reapproximated using subcuticular 4-0 Monocryl suture . Dermabond at the umbilicus and suprapubic area. Steri-Strips left lower quadrant. My medical assistant instructor h elped with prepping, draping, removal of the appendix, closure of the wounds. Job ID: [id number]
[2021-05-12] MEDS: oxyCODONE HCL IR 5 MG TAB (IMMEDIATE RELEASE) PO PRN (20:44)
[2021-05-12] MEDS: CLINDAMYCIN 600 MG in DEXTROSE 5% 50 ML IV SCH (22:22)
[2021-05-13] MEDS: oxyCODONE HCL IR 5 MG TAB (IMMEDIATE RELEASE) PO PRN (01:34)
[2021-05-13] MEDS ORDERED: CLINDAMYCIN 600 MG/54 ML BAG IV SCH (06:00)
[2021-05-13] MEDS: CLINDAMYCIN 600 MG in DEXTROSE 5% 50 ML IV SCH (06:02)
--- NOTE | 2021-05-13 06:46 | Ultrasound Report ---
US venous doppler LE RT HISTORY: 21 years-old Male Rule out DVT acute pain and swelling of the right lower leg COMPARISON: None TECHNIQUE: Multiple real-time sonographic images of the right lower extremity deep venous structures were obtained assessing grayscale appearance, color and spectral flow. FINDINGS: Normal flow, compressibility, phasicity and augmentation. IMPRESSION: No sonographic evidence of deep venous thrombosis. ACT 112: Negative or not required by law. The above report was generated using voice recognition software. It may contain grammatical, syntax o r spelling errors. Electronically signed by: Omar Starr M.D. 05/13/2021 6:45 AM
--- NOTE | 2021-05-13 08:22 | Surgery Progress Note ---
Date of Service May 13, 2021 Assessment & Plan (1) Acute appendicitis: Plan: POD#1 laparoscopic appendectomy Patient doing well. Pain controlled with prn medications Diet tolerated. Has been OOB ambulating Surgical incisions c/d/i Will plan on discharge to home today with f/u in clinic within [address] Steele Admission and Anticipated Discharge Date Admission Date: May 12, 2021 Subjective Patient is doing well. Has some expected post operative pain around the RLQ. Says it is tolerable. He is eating a regular diet, no nausea/vomiting. Voiding okay. Has been out of bed ambulating. Physical Exam Physical Exam: awake/alert Gastrointestinal (Abdomen): Inspection/Auscultation: + abdominal surgical incision (c/d/i no signs of infection) Percussion/Palpation: + abdomen tender (some expected ttp around RLQ) and abdomen soft Results & Data ([facility]) Vital Signs (Past 12 Hours) Vital Signs Temp Pulse Resp BP Pulse Ox 05/13/21 07:24 36.3 C L 106 H 14 123/74 95 05/13/21 04:11 88 115/70 05/13/21 03:45 36.5 C 101 H 16 112/67 95 05/12/21 23:16 36.8 C 75 16 109/61 93 PG Care Time/CCT Total # of Minutes Spent Total Time Spent with Patient: Total time spent is greater than 50% in coordination of care (as documented) at patient's floor/unit and/or counseling patient: Coding Level of Care Code None Diagnoses Acute appendicitis K35.30 Acute appendicitis type: with localized peritonitis Appendicitis abscess presence: without abscess Appendicitis gangrene presence: unspecified whether gangrene present Appendicitis perforation presence: without perforation (1) Acute appendicitis Acute appendicitis type: with localized peritonitis Appendicitis abscess presence: without abscess Appendicitis gangrene presence: unspecified whether gangrene present Appendicitis perforation presence: without perforation Qualified Code(s): K35.30 - Acute appendicitis with localized peritonitis, without perforation or gangrene
--- NOTE | 2021-05-13 10:26 | Discharge Summary ---
Date of Service May 13, 2021 Admission HPI Per Admitting Provider This is a 21y M with no significant PMH who presents to the [facility] ED on 05/12/21 with complaints of abdominal pain starting yesterday around 3:30pm. He says the pain originally started in his mid abdomen. He tried to sleep it off without success. He called [facility] around 9pm who referred him to the ER for further evaluation, but he did not come in at that time. This morning when he woke up the pain migrated to the RLQ. Pain was associated with nausea, chills, and diarrhea and he decided to come in. A CT scan performed in the ER revealed evidence concerning for acute appendicitis, no perforation or abscess.Patient says he last ate yesterday around noon. He has no past surgical history. Has an allergy to PCN. Principal Diagnosis acute appendicitis Discharge Exam awake/alert Gastrointestinal (Abdomen) Inspection/Auscultation: + abdominal surgical incision (c/d/i) Percussion/Palpation: + abdomen tender (some ttp in rlq) and abdomen soft Discharge Data Allergies Allergy/AdvReac Type Severity Reaction Status Date / Time Penicillins AdvReac Rash Unverified 05/12/21 14:18 Consultations 05/12/21 14:18 ED Decision to Admit Stat Procedures Performed Operation Date: 05/12/21 16:50 Actual Procedures p Laparoscopic Appendectomy(Not Applicable) - Devon Steele MD, FACS Ordered Studies 05/12/21 10:54 CT abd pelvis oral and IV con Stat 05/12/21 18:43 US venous doppler LE RT Urgent Hospital Course (1) Acute appendicitis: This is a 21yM who presented to the [facility] ED on 05/12/21 with abdominal pain. Workup in the ED showed a WBC of [address] a/p concerning for acute appendicitis. The patient was tender to palpation in the RLQ. Patient made NPO with IVF and booked for the OR. On 05/12 the patient went to the OR with Dr. Steele for a laparoscopic appendectomy. The patient tolerated the procedure well, see operative report for full details. Post operatively the patient's diet was advanced, pain managed on prn meds, and incisions clean/dry/intact. Post operatively the patient's diet was advanced as tolerated and pain controlled w ith prn medications. He was able to void on his own and ambulate. On 05/13/21 the patient was deemed stable for discharge to home. He was given instructions to follow up in clinic within 2 weeks. Total Time Total Time Spent Total Time Spent (In Minutes): 10 Discharge Plan Discharge Items Patient Disposition: Home - Self-Care Reason For Visit: APPENDICITIS Discharge Diagnosis: laparoscopic appendectomy Activity: Per Instructions section Activity Comment: light activity for 4 weeks Lifting: No more than 10 pounds Bathing Comment: may shower; no soaking in tubs/pools Sexual Activity: When tolerated Exercise/Sports: Wait until after follow-up appointment Exercise Comment: wait 4 weeks Driving/Machine Use: no driving while taking narcotics for pain Non-emergency contact: Surgeon Call non-emergency contact if: you have any medication questions, your symptoms worsen, your pain is not controlled, your pain is worsening, your pain is concerning for you, you have a fever, your temperature is above 101.5, your wound has increased redness, your wound has increased drainage and your wound pain has increased Follow-up/Referrals: Devon Steele MD, FACS [Physician] - 06/08/21 9:15 am (Please call to schedule follow up in clinic within 2 weeks) [facility] [Primary Care Provider] - Diet: Regular Addtl Attending Provider Instructions: SPECIAL CARE INSTRUCTIONS: * Cover incisions and change daily for comfort/drainage. * May use ibuprofen for pain as tolerated. * Expect some swelling and bruising. Call your doctor if: * Temperature above 101 degrees * Pain not relieved by pain medicine ordered * There is increased drainage or redness from any incision * You have any unanswered questions or concerns [phone]. FOLLOW UP VISIT: If not already scheduled, please call the office for a follow-up visit. OFFICE PHONE NUMBER: Please call to schedule a follow up appointment within [address] Steele Office You may remove your outer surgical dressing tomorrow, 05/14/21. You will have small white bandages on underneath called steri-strips. You may shower with these on. They will tend to fall off on their own within 7-10 days. Pending Studies at Discharge: Yes Studies:: surgical pathology Stand-Alone Forms: My [facility] [employer], Work/School Release, Smoking Cessation Medications and DC Order Prescriptions: New hydrocodone-acetaminophen 5-325 mg tablet 1 - 2 tab PO .q4h- q6h PRN (Reason: pain, for initial therapy, max 6 tabs per day ) Qty: 15 RF: 0 Discharge Orders: Discharge Order (Routine); Ordered 05/13/21 Ordered By: Mónica Mckeon Admission Data Admit Date/Time: 05/12/21 18:07 Attending Provider: Devon Steele Admit Provider: Devon Steele Primary Care Provider: [facility] Other Providers: Devon Steele Other Interventions: Discharge Summary Assessment (RN) Last Done: 05/13/21 09:51 Coding Level of Care Code D/C DAY MANAGEMENT <30 MINS Diagnoses Acute appendicitis K35.30 Acute appendicitis type: with localized peritonitis Appendicitis abscess presence: without abscess Appendicitis gangrene presence: unspecified whether gangrene present Appendicitis perforation presence: without perforation
== END 2021-05-13 11:18 | disposition home or self-care (01) ==
LOC: ED 10:08 → ASU 14:56 → 3N 14:56